=== PATIENT | female | born 1965 | race Caucasian/White ===

== ENCOUNTER 2018-06-14 16:19 | Outpatient (CLI) | payer BC, SELFPAY ==
[2018-06-14 20:51] LABS: Cholesterol 200 mg/dL (50-200); HDL Cholesterol 69 mg/dL (40-60); LDL CHOLESTEROL 121 mg/dL (<100); Triglyceride 56 mg/dL (30-150)
[2018-06-15 09:46] LABS: Hemoglobin A1C 5.9 % (4.5-6.2)
== END 2018-06-14 16:39 ==
PROVIDERS: PCP Family Medicine; Visit Provider Family Medicine
DX: R73.03 Prediabetes (principal)
CPT/HCPCS: 36415; 80048; 80061; 83721; 83036

== ENCOUNTER 2018-06-15 17:39 | Outpatient (CLI) | payer BC, SELFPAY ==
[2018-06-15 19:17] LABS: Anion Gap 10.6 mmol/L (3-11); BUN 20 mg/dL (7-18); CO2 30.4 mmol/L (21.0-32.0); CREATININE 0.79 mg/dL (0.55-1.02); Calcium 9.6 mg/dL (8.5-10.1); Chloride 101 mmol/L (98-107); Glucose 92 mg/dL (70-100); Sodium 142 mmol/L (136-145)
== END 2018-06-15 17:59 ==
PROVIDERS: PCP Family Medicine; Visit Provider Family Medicine
DX: Z00.00 Encounter for general adult medical examination without abnormal findings (principal); I10 Essential (primary) hypertension; R73.03 Prediabetes
CPT/HCPCS: 80048

== ENCOUNTER 2018-10-10 08:55 | Outpatient (CLI) | payer BC, SELFPAY ==
[2018-10-10 10:57] LABS: Anion Gap 10.2 mmol/L (3-11); BUN 16 mg/dL (7-18); CO2 30.8 mmol/L (21.0-32.0); CREATININE 0.81 mg/dL (0.55-1.02); Calcium 10.1 mg/dL (8.5-10.1); Chloride 101 mmol/L (98-107); Glucose 105 mg/dL (70-100); Potassium 3.6 mmol/L (3.5-5.1); Sodium 142 mmol/L (136-145)
== END 2018-10-10 09:15 ==
PROVIDERS: PCP Family Medicine; Visit Provider Family Medicine
DX: E87.6 Hypokalemia (principal)
CPT/HCPCS: 36415; 80048

== ENCOUNTER 2019-02-27 07:07 | Outpatient (CLI) | payer BC, SELFPAY ==
[2019-02-27 12:58] LABS: Calculated LDL 160; Cholesterol 237 mg/dL (50-200); HDL Cholesterol 67 mg/dL (40-60); Triglyceride 50 mg/dL (30-150)
[2019-02-27 13:02] LABS: ALT 42 U/L (12-78); AST 29 U/L (15-37); Albumin 4.3 g/dL (3.4-5.0); Alkaline Phosphatase 78 U/L (46-116); Anion Gap 12.6 mmol/L (3-11); BUN 23 mg/dL (7-18); Bilirubin, Total 0.5 mg/dL (0.2-1.0); CO2 29.4 mmol/L (21.0-32.0); CREATININE 0.83 mg/dL (0.55-1.02); Calcium 10.1 mg/dL (8.5-10.1); Chloride 100 mmol/L (98-107); Glucose 118 mg/dL (70-100); Potassium 3.2 mmol/L (3.5-5.1); Sodium 142 mmol/L (136-145); Total Protein 7.9 g/dL (6.4-8.2)
== END 2019-02-27 07:27 ==
PROVIDERS: PCP Family Medicine; Visit Provider Family Medicine
DX: I10 Essential (primary) hypertension (principal)
CPT/HCPCS: 36415; 80053; 80061; 83721

== ENCOUNTER 2019-04-19 00:36 | Outpatient (CLI) | payer BC, SELFPAY ==
--- NOTE | 2019-04-19 15:30 | DI.MAMMO_ITS ---
SYMPTOM/DIAGNOSIS: SCREENING Z12.31 BILATERAL SCREENING MAMMOGRAM: Mammograms were interpreted according to the usual protocol including computer analysis with CAD system, tomosynthesis and C view imaging. Comparison is made with exams from 2012 through 2018. The breasts are composed of scattered fibroglandular densities, breast density category B. No suspicious masses or suspicious microcalcifications are seen. There has been no significant change. IMPRESSION: Category 1, negative mammogram. Yearly screening mammography is recommended. Breast density category B. SA ASSESSMENT OF FINDINGS: Negative. Category 1. Patient will receive a letter notifying them of these results. BI-RADS category B. There are scattered areas of fibroglandular density.
== END 2019-04-19 00:56 ==
PROVIDERS: PCP Family Medicine; Visit Provider Family Medicine
DX: Z12.31 Encounter for screening mammogram for malignant neoplasm of breast (principal)
CPT/HCPCS: 77063; 77067

== ENCOUNTER 2019-05-19 00:46 | Emergency (ER) | payer BC, SELFPAY ==
[2019-05-19] VITALS (20 sets, daily range): BP systolic 123–160; BP diastolic 69–84; PULSE 71–97; RESP 13–21; TEMP 36.8; O2SAT 94–97
--- NOTE | 2019-05-19 00:58 | W.ED.GENAD ---
Discharge Plan Disposition Patient Disposition: HOME Condition: Good Discharge Details Chief Complaint: Abd Prob Clinical Impression: Abdominal pain, RUQ, Hypokalemia Primary Care Provider: Arlin Krause ED Provider: Erick Shelton [place] Meds and New Rx's Prescriptions: Continued potassium chloride 20 mEq tablet extended release 20 meq PO BID Qty: 60 RF: 5 multivitamin [Multi-Day] 1 EACH tablet 1 ea PO DAILY RF: 0 Probiotic 1 EACH capsule 1 ea PO DAILY RF: 0 Mirena 1 EACH intrauterine device 1 ea Intrauterine ONCE Qty: 1 RF: 0 docusate sodium [Colace] 100 MG capsule 200 mg PO DAILY RF: 0 chlorthalidone 50 mg tablet 50 mg PO DAILY Qty: 90 RF: 4 Discharge Instructions Instructions: Biliary Colic (ED) Additional Instructions: Please follow-up with surgery for evaluation of recurrent right upper quadrant pain which is likely related to biliary colic. Avoid greasy fatty foods. Please remember to take your potassium supplements. Return to ED for worsening/persistent pain, fever, persistent vomiting, other concerns or problems. Referrals: [facility] [Provider Group] Discharge Data Discharge Date/Time-TO BE ENTERED AT DEPARTURE: 05/19/19 06:00 Medical Decision Making Patient presenting with right upper quadrant abdominal pain with symptoms including radiation to right shoulder, nausea, vomiting consistent with gallbladder disease. She is tender in the right upper quadrant with a Kendall sign. She has no CVAT. She has no chest pain. Will place IV and get laboratory studies. Will give fluids, morphine, Zofran. Will obtain EKG and troponin but I do not suspect this is cardiac. Will get CT scan of the abdomen pelvis to evaluate for possible cholecystitis. Plan discussed with patient and . 03:20 - Patient's labs are significant for WBC of 13. Potassium is low at 2.5 but patient on chlorthalidone and even though on potassium replacement, this is likely cause of hypokalemia. EKG is normal. CT scan prelim read is some mild gallbladder wall thickening. Also noted to have complex right renal cyst which will need further work up. Patient's pain has resolved. Repeat abdominal exam is benign. She did not receive morphine or Zofran. She is finishing her potassium. She is aware from previous studies of the renal cyst. Will refer to surgery as outpatient for further evaluation of the right upper quadrant pain which is likely biliary colic. Plan on discharge once the potassium has finished. Lab Data Lab results reviewed: Yes I reviewed the patient's lab results. ECG Data Attestation: I personally reviewed and interpreted this ECG (s) as follows: Prior ECG tracings: not available for review Interpretation: Normal sinus rhythm at 66. Normal interval and axis. Normal ST segments. HPI General Mode of arrival: ambulatory. Date/Time Provider Initiated Documentation: 05/19/19 00:56. Limitations to Documentation: no limitations. Information obtained by: patient and RN notes reviewed. HPI Narrative: Patient presents to ED with right upper quadrant abdominal pain that started about 21:00 - 21:30 tonight. She has had it twice previously in the last 2 months. Tonight seems to be more intense and prolonged. She has had vomiting. She has pain radiating from the shoulder on the right down towards the right upper quadrant and back. She has no shortness of breath. She has no chest pain. She has no urinary symptoms. She said no fever or chills. She had spoke to primary care with 1 of the previous episodes and was told if recurrent/significant pain to come to ED. Related Data Home Medications Medication Instructions Recorded Confirmed multivitamin [Multi-Day] 1 ea PO DAILY 11/10/13 05/19/19 Probiotic 1 ea PO DAILY 10/21/15 05/19/19 Mirena 1 ea INTRAUTERINE ONCE #1 implant 02/18/17 05/19/19 docusate sodium [Colace] 200 mg PO DAILY tab-cap 02/24/18 05/19/19 potassium chloride 20 mEq 20 meq PO BID #60 tab-cap 12/26/18 05/19/19 tablet,extended release chlorthalidone 50 mg tablet 50 mg PO DAILY #90 tab-cap 03/20/19 05/19/19 Previous Rx's Medication Instructions Recorded potassium chloride 20 mEq 20 meq PO BID #60 tab-cap 12/26/18 tablet,extended release chlorthalidone 50 mg tablet 50 mg PO DAILY #90 tab-cap 03/20/19 Allergies Allergy/AdvReac Type Severity Reaction Status Date / Time tetanus and diphtheria Allergy Severe HIVES Unverified 05/19/19 03:31 toxoids General Stated Complaint: Abd Prob ANGEL: 3 Review of Systems Review of Systems 07/10 Review of Systems completed and is negative except as stated above in HPI (Systems reviewed: Const, Eyes, ENT, Resp, CV, GI, , MSK, Skin, Neuro) [facility] Medical History Abnormal uterine bleeding (AUB) BMI 29.0-29.9,adult Essential hypertension 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 + Surgical History Cervical Conization/LEEP section Social History Smoking/Tobacco Use Status: Never Alcohol Intake: current Alcohol Intake frequency: holidays/special occasions only Alcohol type: wine Drug use: Never Substance use type: does not use Caregiver/Support person: No Household members: spouse Housing: house Communication Needs: None Do you need help understanding health information?: Rarely Pets and animals: No Sexually active: Yes Do you think of yourself as: straight/heterosexual Current gender identity: female What is your relationship status?: How often do you talk on the phone with friends or family?: three or more times per week How often do you get together with friends or relatives?: decline to answer How often do you attend denominational or worship services?: decline to answer Do you belong to any clubs or organized social groups?: no Panel score (0-1 are the most socially isolated patients): 2 What type of physical activity do you participate in: decline to answer Duration: decline to answer Frequency: decline to answer Brenda/Confucianism: None Special brenda needs: No Seatbelt use: always 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 Hypertensive otherwise vitals normal. Const: WDWN female who appears uncomfortable. HEENT: NC/AT. Normal facial exam. Eyes: Normal conjunctiva and sclera. Neck: Supple. Trachea midline. Lungs: Normal respiratory effort. Lungs are clear. Cor: RRR without murmur/gallop. Good radial pulses. GI: Soft and non-distended. Tender in the RUQ with + Kendall Back: No CVAT. Neuro: A+O x 3. CN grossly in tact. Good strength and no focal deficit. Ext: No C/C/E. No deformity or tenderness. Skin: Warm and dry without rash. Course Vital Signs Temperature 98.2 F 05/19/19 00:48 Pulse 71 05/19/19 00:48 Respiratory Rate 18 05/19/19 00:48 Blood Pressure 160/81 H 05/19/19 00:48 Pulse Oximetry 97 05/19/19 00:48 Temperature 98.2 F 05/19/19 00:48 Temperature Source Skin 05/19/19 00:48 Pulse 71 05/19/19 00:48 Respiratory Rate 18 05/19/19 00:48 Blood Pressure 160/81 H 05/19/19 00:48 Pulse Oximetry 97 05/19/19 00:48 Oxygen Delivery Method Room Air 05/19/19 00:48 Oxygen Flow Rate 0 05/19/19 00:48 Pain Level 9 05/19/19 00:48
[2019-05-19] MEDS: Lactated Ringers 1,000 ML 125 ML IV (01:33)
[2019-05-19 01:45] LABS: Bilirubin Negative (Negative); Blood Negative (Negative); Clarity Clear (Clear); Glucose Negative (Negative); Ketones Negative (Negative); Leukocyte Esterase Negative (Negative); Nitrite Negative (Negative); Specific Gravity 1.025 (1.005-1.025); pH 6.5 (5-8)
[2019-05-19 01:45] LABS: Abs Immature Grans 0.02 k/cumm (0.0-0.09); Absolute Basophil Count 0.04 k/cumm (0.0-0.2); Absolute Eosinophil Count 0.04 k/cumm (0.0-0.7); Absolute Lymphocyte Count 1.96 k/cumm (1.2-3.4); Absolute Monocyte Count 0.65 k/cumm (0.11-0.7); Absolute Neutrophil Count 10.52 k/cumm (1.2-6.7); Basophils % 0.3; Eosinophils % 0.3; HCT 45.4 % (36.0-46.0); HGB 15.2 g/dL (12.0-15.5); Immature Grans % 0.2; Lymphocytes % 14.8; Mean Corp. HGB Concentration 33.5 g/dL (32.0-36.0); Mean Corpuscular Volume 86.6 fL (80-95); Mean Platelet Volume 10.2 fL (8.0-11.0); Monocytes % 4.9; Neutrophils % 79.5; Platelet Count 280 x1000/uL (130-400); RBC 5.24 m/cumm (4.00-5.20); RBC Distribution Width 13.3 % (11.7-14.6); White Blood Cell Count 13.23 k/cumm (4.4-10.8)
[2019-05-19 02:04] LABS: ALT 33 U/L (12-78); AST 20 U/L (15-37); Albumin 4.2 g/dL (3.4-5.0); Alkaline Phosphatase 62 U/L (46-116); BUN 20 mg/dL (7-18); Bilirubin, Total 0.4 mg/dL (0.2-1.0); CREATININE 0.88 mg/dL (0.55-1.02); Calcium 9.2 mg/dL (8.5-10.1); Chloride 99 mmol/L (98-107); Glucose 146 mg/dL (70-100); Lipase 142 U/L (73-393); Magnesium 1.7 mg/dL (1.8-2.4); Sodium 142 mmol/L (136-145); Total Protein 7.9 g/dL (6.4-8.2)
[2019-05-19 02:05] LABS: Potassium 2.5 mmol/L (3.5-5.1); Troponin I < 0.05 ng/mL (0.00-0.06)
[2019-05-19] MEDS: Omnipaque 350 MG/ML 100 ML BTL IJ (02:31)
--- NOTE | 2019-05-19 02:36 | DI.CT_ITS ---
SYMPTOM/DIAGNOSIS: RUQ PAIN ABDOMEN AND PELVIC CT: CT scan of the abdomen and pelvis was performed following the uneventful administration of intravenous contrast material. There are no priors for comparison. The visualized lung bases show no acute abnormality. The liver is normal in size. There is a hypodense lesion seen in the right lobe of the liver. This is too small for further characterization but likely reflects a small cyst. No suspicious hepatic masses are seen. The portal, superior mesenteric and splenic veins are patent. The gallbladder wall appears thickened and enhances. No stones are seen. There does appear to be a mild amount of pericholecystic fluid. No biliary ductal dilatation is present. The pancreas, spleen and adrenal glands are unremarkable. The kidneys show normal and symmetric enhancement. There is a well circumscribed, round hypodense lesion in the superior pole of the left kidney, likely reflecting a cyst. There is a complex 2 cm. cystic and solid lesion involving the inferior pole of the right kidney. There is a peripheral calcification noted. No evidence of obstructive uropathy is seen. The urinary bladder is intact. The reproductive organs are unremarkable except for an intrauterine device in good position. The bowel shows no evidence of obstruction or inflammation. No findings to suggest an acute appendicitis are present. The abdominal aorta is of normal caliber. No significant abdominal or pelvic adenopathy, ascites or pneumoperitoneum is present. No acute osseous abnormality is identified. IMPRESSION: 1. Mild gallbladder wall thickening and a question of pericholecystic fluid. This may represent an inflammatory or infectious process. Gallbladder ultrasound may be considered for further evaluation. 2. 2 cm. complex right renal mass. This does not meet the criteria for a simple cyst. Further evaluation is warranted. Pre and post contrast CT scan and/or MRI should be considered for further evaluation.
[2019-05-19] MEDS: POTASSIUM CHLORIDE 10 MEQ/100 ML BAG 100 MEQ IVPB ×2 (03:11→04:23)
--- NOTE | 2019-05-19 03:15 | DI.VRAD_ITS ---
EXAM: CT Abdomen and Pelvis With Contrast EXAM DATE/TIME: 05/19/2019 1:08 AM CLINICAL HISTORY: 53 years old, female; Abdominal pain; Localized; Right upper quadrant (ruq); Patient HX: Iud present TECHNIQUE: Imaging protocol: Computed tomography images of the abdomen and pelvis with intravenous contrast. Radiation optimization: All CT scans at this facility use at least one of these dose optimization techniques: automated exposure control; mA and/or kV adjustment per patient size (includes targeted exams where dose is matched to clinical indication); or iterative reconstruction. Contrast material: [id number]; Contrast volume: 100 ml; Contrast route: IV RAC 18G; COMPARISON: US PELVIS TRANSVAG 01/18/2018 4:41 PM FINDINGS: Liver: No suspicious lesions. Gallbladder and bile ducts: Gallbladder wall is mildly thickened. Pancreas: Unremarkable. No ductal dilation. Spleen: No suspicious lesions. Adrenals: No suspicious nodule. Kidneys and ureters: 2 cm cyst in the lower pole of the right kidney has a hyperdense area and a calcified area. Stomach and bowel: No inflammed or dilated loops. Appendix: No evidence of appendicitis. Intraperitoneal space: No free air. No significant fluid collection. Vasculature: Unremarkable. No acute findings Lymph nodes: Unremarkable. Bladder: Unremarkable as visualized. Reproductive: IUD. Bones/joints: No acute fracture. No dislocation. Soft tissues: Unremarkable. IMPRESSION: 1. Mild gallbladder wall thickening could represent early evidence of cholecystitis. 2. 2 cm complicated right renal cyst. Consider further characterization with CT or MRI renal mass protocol. Dictated and Authenticated by: Reza Aggarwal MD. Ordering:BECCA Suarez MD
== END 2019-05-19 06:00 | disposition home or self-care (01) ==
PROVIDERS: Emergency Provider Emergency Medicine; PCP Family Medicine
DX: R10.11 Right upper quadrant pain (principal); E87.6 Hypokalemia; R11.2 Nausea with vomiting, unspecified; I10 Essential (primary) hypertension
CPT/HCPCS: 36415; 80053; 83690; 93005; 96361; 96365; 96366; 99284; 74177; 81003; 83735; 84484; 85025; 93010; J2270; J2405; J3480; J3490

== ENCOUNTER 2019-05-30 10:04 | Day surgery (SDC) | payer BC, SELFPAY ==
[2019-05-30] VITALS (9 sets, daily range): BP systolic 116–146; BP diastolic 61–99; PULSE 55–68; RESP 14–22; TEMP 36.4–36.7; O2SAT 94–98
[2019-05-30] MEDS: Lactated Ringers 1,000 ML 80 ML IV (10:40)
[2019-05-30 10:59] LABS: Anion Gap 10.8 mmol/L (3-11); BUN 14 mg/dL (7-18); CO2 27.2 mmol/L (21.0-32.0); CREATININE 0.82 mg/dL (0.55-1.02); Calcium 9.3 mg/dL (8.5-10.1); Chloride 100 mmol/L (98-107); Glucose 109 mg/dL (70-100); Potassium 3.1 mmol/L (3.5-5.1); Sodium 138 mmol/L (136-145)
[2019-05-30] MEDS: ceFAZolin 2 GM/50 ML BAG IVPB (12:19)
[2019-05-30] MEDS: Bupivacaine 0.5% Pres-Free 30 ML VIAL (12:40)
--- NOTE | 2019-05-30 13:45 | GB_PTH ---
PATIENT: Prabha Decker LOC: [facility] U#:[id number] AGE/SX: 53/F ROOM: RE05/30/[address]: Florida Cross MD : 1965 BED: DIS: 05/30/2019 SPEC #: [id number] RECD: 05/30/19 15:01 STATUS: GISSEL SOTO #: [id number] ABDELRAHMAN: 05/30/19 13:[address]: Florida Cross DEPT: Surgical Specimen RECD BY: Mitzi Washington ENTERED: 05/30/19 15:02 SP TYPE: GB OTHR DR: Arlin Krause MD Tissues: 1 - GALLBLADDER Procedures: GROSS AND MICRO LEVEL 3 Comments: [id number]
--- NOTE | 2019-05-30 13:54 | W.PM.DSUDISC ---
Discharge Plan Disposition Patient Disposition: HOME Condition: Good Discharge Details Reason For Visit: CHRONIC CHOLECYSTITIS Attending Provider: Florida Cross Primary Care Provider: Arlin Krause Home Meds and New Rx's Prescriptions: New hydrocodone-acetaminophen 5-325 mg tablet 1 tab PO Q6H PRN (Reason: pain) Qty: 12 RF: 0 Continued potassium chloride 20 mEq tablet extended release 20 meq PO BID Qty: 60 RF: 5 multivitamin [Multi-Day] 1 EACH tablet 1 ea PO DAILY RF: 0 Probiotic 1 EACH capsule 1 ea PO DAILY RF: 0 Mirena 1 EACH intrauterine device 1 ea Intrauterine ONCE Qty: 1 RF: 0 docusate sodium [Colace] 100 MG capsule 200 mg PO DAILY RF: 0 chlorthalidone 50 mg tablet 50 mg PO DAILY Qty: 90 RF: 4 Discharge Instructions Additional Instructions: The top bandage can be removed tomorrow. The steri strips will usually stick for about a week. When the edges start to curl up, they can be removed. It is okay to shower tomorrow, the water can run over the steri strips Do not swim or soak in a tub for two weeks Call for any concerns including fever, increased pain, vomiting, incision redness or drainage. Do not lift more than 15 pounds for two weeks. Walking and stairs are fine. Do not drive if on narcotic pain meds or if limited by pain. May use Tylenol alternating with ibuprofen for pain control. Ice is also an option. The maximum dose for Tylenol is 4000 mg/day. May use ibuprofen 800 mg every 8 hours as needed. If concerned about constipation, you may use a stool softener or milk of magnesia. Referrals: Florida Cross MD [ [facility] STAFF PHYSICIAN] - (Return in 10-14 days for postop check) Activity:: Do not lift more than 15 pounds Remove Dressings/Wound Care:: 24 hours Shower/Bathe:: 24 hours Diet:: Low fat for two weeks Discharge Orders Discharge Orders: Discharge Order (Routine); Ordered 05/30/19 Ordered By: Florida Cross DS: Diagnosis Discharge Diagnosis (1) Chronic cholecystitis: Status: Acute (2) History of laparoscopic cholecystectomy:
[2019-05-30] MEDS: Normal Saline Flush 10 ML SYR IV (14:49)
[2019-05-30] MEDS: HYDROmorphone 2 MG/ML VIAL IVP (14:49)
--- NOTE | 2019-05-31 05:50 | ROE_ITS ---
DATE OF PROCEDURE: May 30, 2019 PREOPERATIVE DIAGNOSIS: Chronic cholecystitis. POSTOPERATIVE DIAGNOSIS: Chronic cholecystitis. PROCEDURE: Laparoscopic cholecystectomy. SURGEON: Florida Cross M.D. ORCHESTRA LEADER: Annie Fried ANESTHESIA: Local and general. INDICATIONS: This is a 53-year-old woman with typical biliary colic symptoms. She had a CT scan that showed thickening of the gallbladder wall with some mild pericholecystic fluid consistent with cholecystitis. Her WBC count and LFTs were normal. PROCEDURE: She was placed supine on the operating table and under general anesthetic was prepped and draped sterilely. A 5 mm incision was made to the left of the umbilicus and the abdomen entered under direct visualization. A CO2 pneumoperitoneum was begun and she was placed in reversed Trendelenburg position. The epigastric and two lateral ports were placed under direct visualization after injecting local anesthetic. The gallbladder was noted to be thickened and chronically inflamed. It was difficult to grasp with the usual graspers, so we selected an Allis tip for better purchase. I did attempt to decompress the gallbladder, but the bile was so thick it could not be aspirated. The fundus was pulled up over the liver. Omental adhesions to the gallbladder were taken down with hook cautery. The peritoneum overlying the triangle of Calot was slowly dissected free. It was noted to be very thickened. The tissues were slow and difficult to dissect. The cystic duct was isolated and visualized going directly onto the gallbladder. The common bile duct was also visualized and avoided. The cystic duct was not dilated. It did not have any stones palpated within it. The cystic artery was also isolated and visualized going directly onto the gallbladder. This was clipped twice proximally and once distally and divided. The cystic duct was clipped twice distally and once proximally and divided. The gallbladder was then dissected off the liver bed with hook cautery. There were a few posterior arterial branches that were clipped. Again the plane between the gallbladder and liver was very difficult to distinguish and I did enter the gallbladder with spillage of some multifaceted stones. The gallbladder was removed through the epigastric incision in an Endo-Catch bag. I then used the stone retriever to remove the residual stones in the gallbladder fossa. The region was copiously irrigated and suctioned clean. There was no evidence of bleeding or bile leak. The ports were removed with no evidence of port site bleed and the CO2 released. The skin at all port sites was closed with a #4-0 Monocryl subcuticular stitch. She tolerated the procedure well and was stable to recovery. cc: Arlin Krause M.D.
== END 2019-05-30 16:25 | disposition home or self-care (01) ==
PROVIDERS: Nurse Anesthetist, Certified Registered; PCP Family Medicine; Visit Provider Surgery
PROC: 0FT44ZZ Resection of Gallbladder, Percutaneous Endoscopic Approach (ICD-10-PCS; CPT 47562; principal; 2019-05-30 12:00)
DX: K80.10 Calculus of gallbladder with chronic cholecystitis without obstruction (principal); K82.8 Other specified diseases of gallbladder
CPT/HCPCS: 47562; 80048; 88304; J0690; J1100; J1885; J2405

== ENCOUNTER 2019-08-28 07:00 | Outpatient (CLI) | payer BC, SELFPAY ==
[2019-08-28 11:04] LABS: Anion Gap 11.5 mmol/L (3-11); BUN 23 mg/dL (7-18); CO2 31.5 mmol/L (21.0-32.0); Calculated LDL 125 mg/dL; Chloride 100 mmol/L (98-107); Cholesterol 209 mg/dL (<200); Glucose 110 mg/dL (74-106); HDL Cholesterol 70 mg/dL (40-60); Potassium 3.3 mmol/L (3.5-5.1); Sodium 143 mmol/L (136-145); Triglyceride 72 mg/dL (<150)
[2019-08-28 11:29] LABS: Hemoglobin A1C 5.9 % (4.5-6.2)
== END 2019-08-28 07:20 ==
PROVIDERS: PCP Family Medicine; Visit Provider Family Medicine
DX: E78.5 Hyperlipidemia, unspecified (principal); R73.03 Prediabetes
CPT/HCPCS: 36415; 80048; 80061; 83036

== ENCOUNTER 2019-09-26 01:24 | Outpatient (CLI) | payer BC, SELFPAY ==
--- NOTE | 2019-09-26 08:40 | DI.MRI_ITS ---
EXAM: MR ABDOMEN WO/W CLINICAL HISTORY: right renal mass on CT/ pt asymptomatic, N28.89. TECHNIQUE: Multiplanar multisequence MRI was performed. COMPARISON: CT ABDOMEN PELVIS W from 05/19/2019 FINDINGS: Multiplanar multiphasic MR was obtained to evaluate inferior pole mass of the right kidney. There is a tiny left lobe apparent hepatic cyst. Small upper pole left renal cyst also noted. Adrenals appe ar normal. Abdominal aorta is of normal diameter. No evidence of adenopathy. Pancreas unremarkable in appearance. Bile ducts appear normal. The 2 cm in diameter inferior pole right renal mass shows no evidence of internal fat content on oppo sed phase imaging or fat sat imaging. The lesion is of intermediate to high mixed signal intensity o n T2 and T1 weighted imaging with peripheral signal void correlated with rim calcifications identifie d on CT. Suspect significant hemorrhagic content of this lesion. Pre and post contrast T1 fat sat imaging shows little if any convincing enhancement on arterial phase , venous phase or delayed phase imaging. However the degree of heterogeneity and areas of increased and decreased signal make it difficult to appreciate small degrees of enhancement. Subtraction image s were also obtained which showed question mild heterogeneous enhancement of the lesion. IMPRESSION: 2 cm inferior pole right renal lesion shows imaging characteristics which are indeterminate for malig rula. There may be a significant hemorrhagic component of the lesion. Tissue sampling or close kedar ging follow up recommended.
[2019-09-26] MEDS: Gadoterate meglumine 20 ML VIAL 14 ML IVP (08:45)
[2019-09-26] MEDS: Normal Saline Flush 10 ML SYR IVP (08:45)
== END 2019-09-26 01:44 ==
PROVIDERS: PCP Family Medicine; Visit Provider Family Medicine
DX: N28.89 Other specified disorders of kidney and ureter (principal)
CPT/HCPCS: 74183

== ENCOUNTER 2020-03-13 11:47 | Outpatient (REF) | payer BC, SELFPAY ==
--- NOTE | 2020-03-13 10:30 | PAPFT_PTH ---
PATIENT: Prabha Decker LOC: [facility] U#:[id number] AGE/SX: 54/F ROOM: RE03/13/[address]: Arlin Krause MD : 1965 BED: DIS: 03/13/2020 SPEC #: [id number] RECD: 03/14/20 12:49 STATUS: GISSEL REQ #: [id number] ABDELRAHMAN: 03/13/20 10:[address]: Arlin Krause DEPT: [facility] Cytology RECD BY: Mary Almendarez Tissues: 1 - CX/ENDOCX FOR PAP SMEARS Procedures: PAP THIN PREP/UVM Screening HPV DNA PROBE Comments: [id number]
== END 2020-03-13 12:07 ==
LOC: LBN 11:47
PROVIDERS: PCP Family Medicine; Visit Provider Family Medicine
DX: Z12.4 Encounter for screening for malignant neoplasm of cervix (principal); Z11.51 Encounter for screening for human papillomavirus (HPV)
CPT/HCPCS: 88142; 87624

== ENCOUNTER 2020-03-22 01:31 | Outpatient (CLI) | payer BC, SELFPAY ==
[2020-03-22 11:12] LABS: HGB 14.8 g/dL (12.0-15.5); Mean Corp. HGB Concentration 33.6 g/dL (32.0-36.0); Mean Corpuscular Hemoglobin 29.4 pg (27.0-33.0); Mean Corpuscular Volume 87.5 fL (80-95); Platelet Count 319 x1000/uL (130-400); RBC 5.03 m/cumm (4.00-5.20); RBC Distribution Width 13.1 % (11.7-14.6); White Blood Cell Count 6.47 k/cumm (4.4-10.8)
[2020-03-22 11:34] LABS: Bilirubin Negative (Negative); Blood Negative (Negative); Clarity Clear (Clear); Glucose Negative (Negative); Ketones Negative (Negative); Leukocyte Esterase Negative (Negative); Nitrite Negative (Negative); Specific Gravity 1.025 (1.005-1.025)
[2020-03-22 12:04] LABS: ALT 31 U/L (14-59); AST 23 U/L (15-37); Albumin 4.6 g/dL (3.4-5.0); Alkaline Phosphatase 68 U/L (46-116); Anion Gap 11.4 mmol/L (3-11); BUN 21 mg/dL (7-18); Bilirubin, Total 0.6 mg/dL (0.2-1.0); CO2 27.6 mmol/L (21.0-32.0); CREATININE 0.84 mg/dL (0.55-1.02); Calcium 9.9 mg/dL (8.5-10.1); Chloride 100 mmol/L (98-107); Glucose 94 mg/dL (74-106); Potassium 3.3 mmol/L (3.5-5.1); Sodium 139 mmol/L (136-145); Total Protein 7.9 g/dL (6.4-8.2)
== END 2020-03-22 01:51 ==
PROVIDERS: PCP Family Medicine; Visit Provider Family Medicine
DX: E87.6 Hypokalemia (principal); N28.1 Cyst of kidney, acquired; K21.9 Gastro-esophageal reflux disease without esophagitis
CPT/HCPCS: 36415; 80053; 85027; 81003

== ENCOUNTER 2020-04-23 01:14 | Outpatient (CLI) | payer BC, SELFPAY ==
--- NOTE | 2020-04-23 09:30 | DI.MAMMO_ITS ---
EXAM: MAMMO SCREENING CLINICAL HISTORY: screening,Z12.39 TECHNIQUE: Mammograms were interpreted according to the usual protocol including computer analysis w ith CAD system, tomosynthesis and C-view imaging. COMPARISON: 2011 through 2018 FINDINGS: The breasts are composed of scattered fibroglandular densities, Breast Density category B. No suspicious masses or suspicious microcalcifications are seen. No skin thickening or abnormal axillary lymph nodes are seen. There has been no significant change from prior exams. IMPRESSION: BI-RADS Category 1, negative mammogram. Yearly screening mammography is recommended. Breast Density Category B, scattered fibroglandular densities.
== END 2020-04-23 01:34 ==
PROVIDERS: PCP Family Medicine; Visit Provider Family Medicine
DX: Z12.31 Encounter for screening mammogram for malignant neoplasm of breast (principal); R92.2 Inconclusive mammogram
CPT/HCPCS: 77063; 77067

== ENCOUNTER 2021-08-05 00:49 | Outpatient (CLI) | payer BC, SELFPAY ==
--- NOTE | 2021-08-05 15:41 | DI.MAMMO_ITS ---
Exam(s) MAMMO SCREENING EXAM: MAMMO SCREENING CLINICAL HISTORY: screening,z12.39 TECHNIQUE: Bilateral full field digital CC and MLO mammographic images were obtained with 3D tomosyn thesis and utilizing computer aided detection (CAD). COMPARISON: Available for comparison. FINDINGS: Masses/Architectural Distortion: None seen. Microcalcifications: No suspicious pleomorphic-type are seen. Skin Thickening/Nipple Retraction: None. IMPRESSION: 1. No significant interval change with no specific features of malignancy noted. 2. Unless there is more urgent need, screening mammography is recommended, as per [employer] guidelines. BI-RADS Category 1 - Negative Breast Density - Category B - Scattered areas of fibroglandular density Breast density category C or D implies that the patient has dense breast tissue. Dense breast tissue is very common and is not abnormal but dense breast tissue can make it harder to find cancer on a ma mmogram. Also, dense breast tissue may increase their breast cancer risk. This information about the result of the mammogram report was provided to the patient to raise their awareness. Use this report when you speak with the patient about their risks for breast cancer, which includes their family hist ory. At that time, you may recommend for more screening tests (Ultrasound or MRI) as they might be us eful based on their risk. A negative radiographic report should not delay biopsy if a dominant or clinically suspicious mass is present. Up to ten percent of cancers are not identified on mammography. A negative report may reinforce clinical impression. Adenosis and dense breasts may obscure an underlying neoplasm. False positive reports average 6 to 10%. Patient will receive a letter notifying them of these results.
== END 2021-08-05 01:09 ==
PROVIDERS: PCP Family Medicine; Visit Provider Family Medicine
DX: Z12.31 Encounter for screening mammogram for malignant neoplasm of breast (principal)
CPT/HCPCS: 77063; 77067

== ENCOUNTER 2021-12-15 03:32 | Outpatient (CLI) | payer BC, SELFPAY ==
[2021-12-15 08:31] LABS: ALT 36 U/L (14-59); AST 20 U/L (15-37); Albumin 4.6 g/dL (3.4-5.0); Alkaline Phosphatase 63 U/L (46-116); Anion Gap 11.1 mmol/L (3-11); BUN 23 mg/dL (7-18); Bilirubin, Total 0.7 mg/dL (0.2-1.0); CO2 26.9 mmol/L (21.0-32.0); CREATININE 0.9 mg/dL (0.55-1.02); Calcium 9.6 mg/dL (8.5-10.1); Calculated LDL 120 mg/dL (<100); Chloride 101 mmol/L (98-107); Cholesterol 207 mg/dL (<200); Glucose 108 mg/dL (74-106); HDL Cholesterol 71 mg/dL (40-60); Potassium 3.8 mmol/L (3.5-5.1); Sodium 139 mmol/L (136-145); TSH (W/Ref FT4) 1.65 uIU/mL (0.36-3.74); Total Protein 7.9 g/dL (6.4-8.2); Triglyceride 81 mg/dL (<150)
[2021-12-16 10:48] LABS: HIV-1/2 Ag & Ab Screen Negative (Negative)
[2021-12-16 11:03] LABS: Hepatitis C Ab w Rflx HCV PCR Negative (Negative)
== END 2021-12-15 03:33 | disposition home or self-care (01) ==
LOC: LBO 03:33
PROVIDERS: PCP Family Medicine; Visit Provider Family Medicine
DX: I10 Essential (primary) hypertension (principal); R60.0 Localized edema; Z11.4 Encounter for screening for human immunodeficiency virus [HIV]; Z11.59 Encounter for screening for other viral diseases
CPT/HCPCS: 36415; 80053; 80061; 86803; 87389; 84443

== ENCOUNTER 2022-10-16 07:56 | Outpatient (REF) | payer BC, SELFPAY ==
--- NOTE | 2022-10-16 07:40 | PAPFT_PTH ---
PATIENT: Prabha Decker LOC: [facility] U#:[id number] AGE/SX: 57/F ROOM: RE10/16/[address]: Pool Domingo DNP : 1965 BED: DIS: 10/16/2022 SPEC #: [id number] RECD: 10/16/22 12:53 STATUS: GISSEL REQ #: [id number] ABDELRAHMAN: 10/16/22 07:[address]: Pool العلي DEPT: [facility] Cytology RECD BY: Mray Almendarez Tissues: 1 - CX/ENDOCX FOR PAP SMEARS Procedures: PAP THIN PREP/UVM Screening HPV DNA PROBE Comments: [id number]
== END 2022-10-16 07:57 | disposition home or self-care (01) ==
LOC: LBN 07:56
PROVIDERS: PCP Nurse Practitioner Family; Visit Provider Nurse Practitioner Family
DX: Z11.51 Encounter for screening for human papillomavirus (HPV) (principal)
CPT/HCPCS: 88142; 87624

== ENCOUNTER 2022-10-28 03:06 | Outpatient (CLI) | payer BC, SELFPAY ==
--- NOTE | 2022-10-28 08:30 | DI.MAMMO_ITS ---
Exam(s) MAMMO SCREENING EXAM: MAMMO SCREENING CLINICAL HISTORY: screening,Z12.39 TECHNIQUE: Mammograms were interpreted according to the usual protocol including computer analysis w [employer] CAD system, tomosynthesis and C-view imaging. COMPARISON: 2016 through 2020 FINDINGS: The breasts are composed of scattered fibroglandular densities, Breast Density category B. No suspicious masses or suspicious microcalcifications are seen. No skin thickening or abnormal axillary lymph nodes are seen. There has been no significant change from prior exams. IMPRESSION: BI-RADS Category 1, Negative mammogram Yearly screening mammography is recommended. Breast Density - Category B, scattered fibroglandular densities. A negative radiographic report should not delay biopsy if a dominant or clinically suspicious mass is present. Up to ten percent of cancers are not identified on mammography. A negative report may reinforce clinical impression. Adenosis and dense breasts may obscure an underlying neoplasm. False positive reports average 6 to 10%. Patient will receive a letter notifying them of these results.
== END 2022-10-28 03:26 ==
PROVIDERS: PCP Nurse Practitioner Family; Visit Provider Nurse Practitioner Family
DX: Z12.31 Encounter for screening mammogram for malignant neoplasm of breast (principal)
CPT/HCPCS: 77063; 77067

== ENCOUNTER 2022-11-17 02:04 | Outpatient (CLI) | payer BC, SELFPAY ==
[2022-11-17 16:49] LABS: Hemoglobin A1C 5.9 % (<5.7)
[2022-11-17 17:38] LABS: Anion Gap 9.9 mmol/L (3-11); BUN 22 mg/dL (7-18); CO2 29.1 mmol/L (21.0-32.0); CREATININE 0.9 mg/dL (0.55-1.02); Calcium 9.9 mg/dL (8.5-10.1); Chloride 102 mmol/L (98-107); Estimated GFR 75.03 (mL/min/1.73m2); Glucose 86 mg/dL (74-106); Sodium 141 mmol/L (136-145)
== END 2022-11-17 02:05 | disposition home or self-care (01) ==
LOC: LBO 02:05
PROVIDERS: PCP Nurse Practitioner Family; Visit Provider Nurse Practitioner Family
DX: I10 Essential (primary) hypertension (principal); R73.03 Prediabetes
CPT/HCPCS: 36415; 80048; 83036

== ENCOUNTER 2023-10-18 19:28 | Outpatient (REF) | payer BC, SELFPAY ==
[2023-10-18 20:20] LABS: Anion Gap 10.6 mmol/L (3-11); BUN 14 mg/dL (7-18); CO2 27.4 mmol/L (21.0-32.0); CREATININE 0.9 mg/dL (0.55-1.02); Calcium 10.4 mg/dL (8.5-10.1); Chloride 102 mmol/L (98-107); Estimated GFR 74.57 (mL/min/1.73m2); Glucose 135 mg/dL (74-106); Potassium 4.4 mmol/L (3.5-5.1); Sodium 140 mmol/L (136-145)
[2023-10-18 23:44] LABS: Hemoglobin A1C 6.6 % (<5.7)
== END 2023-10-18 19:29 | disposition home or self-care (01) ==
LOC: LBN 19:28
PROVIDERS: PCP Nurse Practitioner Family; Visit Provider Nurse Practitioner Family
DX: I10 Essential (primary) hypertension (principal); R73.03 Prediabetes
CPT/HCPCS: 80048; 83036

== ENCOUNTER → 2023-10-29 01:45 | Outpatient (CLI) | payer BC, SELFPAY ==
--- NOTE | 2023-10-29 07:21 | DI.MAMMO_ITS ---
Exam(s) MAMMO SCREENING EXAM: MAMMO SCREENING CLINICAL HISTORY: screening,z12.39 TECHNIQUE: Bilateral full field digital CC and MLO mammographic images were obtained with 3D tomosyn thesis and utilizing computer aided detection (CAD). COMPARISON: Available for comparison. FINDINGS: Masses/Architectural Distortion: None seen. Microcalcifications: No suspicious pleomorphic-type are seen. Skin Thickening/Nipple Retraction: None. IMPRESSION: 1. No significant interval change with no specific features of malignancy noted. 2. Unless there is more urgent need, screening mammography is recommended, as per [employer] guidelines. BI-RADS Category 1 - Negative Breast Density - Category B - Scattered areas of fibroglandular density Breast density category C or D implies that the patient has dense breast tissue. Dense breast tissue is very common and is not abnormal but dense breast tissue can make it harder to find cancer on a ma mmogram. Also, dense breast tissue may increase their breast cancer risk. This information about the result of the mammogram report was provided to the patient to raise their awareness. Use this report when you speak with the patient about their risks for breast cancer, which includes their family hist ory. At that time, you may recommend for more screening tests (Ultrasound or MRI) as they might be us eful based on their risk. A negative radiographic report should not delay biopsy if a dominant or clinically suspicious mass is present. Up to ten percent of cancers are not identified on mammography. A negative report may reinforce clinical impression. Adenosis and dense breasts may obscure an underlying neoplasm. False positive reports average 6 to 10%. Patient will receive a letter notifying them of these results.
== END ==
PROVIDERS: PCP Nurse Practitioner Family; Visit Provider Nurse Practitioner Family
DX: Z12.31 Encounter for screening mammogram for malignant neoplasm of breast; R92.323 Mammographic fibroglandular density, bilateral breasts
CPT/HCPCS: 77063; 77067

== ENCOUNTER 2024-04-21 14:50 | Outpatient (REF) | payer BC, SELFPAY ==
[2024-04-21 21:26] LABS: Anion Gap 8.3 mmol/L (3-11); BUN 22 mg/dL (7-18); CO2 28.7 mmol/L (21.0-32.0); CREATININE 0.7 mg/dL (0.55-1.02); Calcium 9.8 mg/dL (8.5-10.1); Chloride 103 mmol/L (98-107); Estimated GFR 100.81 (mL/min/1.73m2); Glucose 118 mg/dL (74-106); Potassium 4.2 mmol/L (3.5-5.1); Sodium 140 mmol/L (136-145)
[2024-04-21 21:30] LABS: Hemoglobin A1C 5.8 % (<5.7)
== END 2024-04-21 14:51 | disposition home or self-care (01) ==
LOC: LBN 14:50
PROVIDERS: PCP Nurse Practitioner Family; Visit Provider Nurse Practitioner Family
DX: R73.03 Prediabetes (principal); I10 Essential (primary) hypertension
CPT/HCPCS: 80048; 83036